=== PATIENT | female | born 1980 | race Caucasian/White ===

== ENCOUNTER 2018-07-31 12:29 | Emergency (ER) | payer MEDICAID ==
[~2018-07-31] VITALS: Ht 167.6 cm; Wt 125.0 kg
[~2018-07-31 12:29] MED LIST: B12/1TAB3; BENZ1TAB61 PO; CLON0.5T PO; ESTR8.1S2 INH; FLUO10CA13 PO; HYDR-3307 PO; MAGN400C; METF500T17 PO; ONDA4TAB10 PO; PARI2CAP; PHEN15CA2 PO; PHYT100T; PROM25SU34 RC; ROPI1TAB; [UNRECOGNIZED DRUG - CODE] IV
[2018-07-31] MEDS ORDERED: SODIUM CHLORIDE FLUSH 10ML SYR IVF ONE (13:30)
[2018-07-31] MEDS ORDERED: LORazepam 1MG TABLET ONE (14:21)
[2018-07-31] MEDS ORDERED: LORazepam 2 MG/ML, 1ML IVPush ONE (14:30)
[2018-07-31] MEDS ORDERED: LORazepam 1MG TABLET PO ONE (14:30)
[2018-07-31] MEDS ORDERED: PLEASE ENTER ALLERGIES MC SCH (15:00)
[2018-07-31 16:44] VITALS: BP 107/59
== END 2018-07-31 16:46 | disposition home or self-care (01) ==
LOC: MERGE 12:29 → ED 16:40
DX: G89.11 Acute pain due to trauma (principal); M25.551 Pain in right hip
CPT/HCPCS: 99283